=== PATIENT | female | born 1945 | race Two or more races ===

== ENCOUNTER 2022-12-20 06:57 | Day surgery (SDC) | payer OTHER | END 2022-12-20 12:45 | disposition home or self-care (01) | LOC: AMB-ENDOS 06:57 | PROVIDERS: ATTEND Surgery | DX: D12.2 Benign neoplasm of ascending colon (principal); D12.0 Benign neoplasm of cecum; K92.1 Melena; Z83.71 Family history of colonic polyps; Z20.822 Contact with and (suspected) exposure to COVID-19 ==